=== PATIENT | female | born 1995 | race American Indian/Alaskan Native ===

== ENCOUNTER 2020-01-26 23:44 | Emergency (ER) | payer SELFPAY ==
[2020-01-27 00:31] LABS: Basophils % (Auto) 0.3 % (0.0-1.8); Hemoglobin 14.5 gm/dl (10.1-14.3); Lymphocytes # (Auto) 0.9 K/mm3 (1.2-5.4); Lymphocytes % (Auto) 11.2 % (13.4-35.0); Mean Corpuscular HGB Conc 34 % (30-34); Mean Corpuscular Volume 90 fl (79-97); Monocytes # (Auto) 0.3 K/mm3 (0.0-0.8); Monocytes % (Auto) 3.3 % (0.0-7.3); Platelet Count 272 K/mm3 (140-440); Red Blood Count 4.77 M/mm3 (3.65-5.03); Red Cell Distribution Width 14.1 % (13.2-15.2)
[2020-01-27] MEDS ORDERED: LACTATED RINGERS 1,000 ML IV ONE (00:33)
[2020-01-27] MEDS ORDERED: FAMOTIDINE 20 MG/2 ML INJ IV ONE (00:33)
[2020-01-27] MEDS ORDERED: ONDANSETRON 4 MG/2 ML INJ IV ONE ×2 (00:33→02:03)
[2020-01-27] MEDS ORDERED: LIDOCAINE VISCOUS 2% 15 ML ORAL LIQD PO ONE (00:34)
[2020-01-27] MEDS ORDERED: ALUM-MAG HYDROXIDE-SIMETHICONE 200-200-20MG/5ML ORAL LIQD 30 ML PO ONE (00:34)
[2020-01-27] MEDS ORDERED: KETOROLAC 30 MG/1 ML INJ IV ONE ×2 (00:34→03:39)
[2020-01-27 00:45] LABS: Alanine Aminotransferase 16 units/L (7-56); Albumin 4.9 g/dL (3.9-5); BUN/Creatinine Ratio 19; Blood Urea Nitrogen 15 mg/dL (7-17); Calcium 10.7 mg/dL (8.4-10.2); Hemolysis Index 12
[2020-01-27] MEDS ORDERED: MORPHINE 2 MG/1 ML INJ IV ONE (02:03)
[2020-01-27] MEDS ORDERED: SODIUM CHLORIDE 0.9% 1000 ML 1,000 ML IV ONE (02:03)
--- NOTE | 2020-01-27 02:58 | XRay Report ---
CHEST 1 VIEW INDICATION: CHEST PAIN. COMPARISON: None FINDINGS: Support devices: None. Heart: Within normal limits. Lungs/Pleura: No acute air space or interstitial disease. Additional findings: None. IMPRESSION: 1. No acute findings. Signer Name: Cyril Casper MD Signed: 01/27/2020 2:53 AM Workstation Name: [id number]
[2020-01-27 03:14] LABS: Bacteria,Urine 1+ /HPF (Negative); Bilirubin,Urine NEG (Negative); Blood,Urine NEG (Negative); Color,Urine Yellow (Yellow); Mucus,Urine FEW /HPF
--- NOTE | 2020-01-27 03:19 | Emergency Department Report ---
ED N/V/D HPI - General Chief complaint: Nausea/Vomiting/Diarrhea Stated complaint: CHEST PAIN Source: patient Mode of arrival: Ambulatory Limitations: No Limitations - History of Present Illness Initial comments: Patient is a nulliparous 24-year-old -[place] female with no past medical history presents to the ED with complaint of acute onset persistent intractable nausea and vomiting and epigastric pain that radiates to the substernal chest wall with chest pain for the last 12 hours. Patient states that she has not been able to keep anything down since the onset of the symptoms. Patient states that no one else at home is had similar symptoms. Patient also complains of headache and generalized weakness and fatigue. Patient denies diarrhea, fever, chills, cough, dizziness, syncope, vaginal bleeding, vaginal discharge, dysuria, urinary frequency and urgency, hematemesis, hematochezia, low back pain or change in vision. MD complaint: nausea, vomiting, other (chest wall pain) -: Sudden, hour(s) (12) Description of Vomiting: food contents, watery Description of Diarrhea: other (None) Associated Abdominal Pain: Yes (Epigastric pain) Location: epigastric Radiation: chest Severity: severe Pain Scale: 9 Quality: cramping, aching, sharp Consistency: constant Improves with: none Worsens with: vomiting Context: possible food poisoning Associated Symptoms: denies other symptoms, myalgias, chest pain, headaches, loss of appetite, malaise, nausea/vomiting. denies: cough, diaphoresis, fever/chills, rash, dysuria, shortness of breath, syncope, weakness - Related Data Previous Rx's Medication Instructions Recorded Last Taken Type Cyclobenzaprine [Flexeril] 10 mg PO BID PRN #20 tablet 07/29/18 Unknown Rx Menthol/Camphor [[place] 1 applic TP TID PRN #1 tube 07/29/18 Unknown Rx Ointment] Naproxen 500 mg PO BID PRN #30 tablet 07/29/18 Unknown Rx Dicyclomine [Bentyl] 20 mg PO Q6H PRN #30 tablet 01/27/20 Unknown Rx Famotidine [Pepcid] 20 mg PO Q12H #30 tablet 01/27/20 Unknown Rx Lidocaine Viscous 2% 10 ml PO Q6H PRN #120 ml 01/27/20 Unknown Rx Ondansetron [Zofran Odt] 4 mg PO Q6HR PRN #20 tab.rapdis 01/27/20 Unknown Rx Allergies Allergy/AdvReac Type Severity Reaction Status Date / Time No Known Allergies Allergy Verified 07/29/18 21:07 ED Review of Systems ROS: Stated complaint: CHEST PAIN Other details as noted in HPI Constitutional: denies: chills, fever Eyes: denies: eye pain, eye discharge, vision change ENT: denies: ear pain, throat pain Respiratory: denies: cough, shortness of breath, wheezing Cardiovascular: chest pain (Burning chest pain). denies: palpitations Endocrine: no symptoms reported Gastrointestinal: abdominal pain (Epigastric), nausea, vomiting. denies: diarrhea, hematemesis, melena, hematochezia Genitourinary: denies: urgency, dysuria, discharge Musculoskeletal: denies: back pain, joint swelling, arthralgia Skin: denies: rash, lesions Neurological: denies: headache, weakness, paresthesias Psychiatric: denies: anxiety, depression Hematological/Lymphatic: denies: easy bleeding, easy bruising ED Past Medical Hx - Past Medical History Previous Medical History?: No - Surgical History Past Surgical History?: No - Social History Smoking Status: Never Smoker Substance Use Type: None - Medications Home Medications: Home Medications Medication Instructions Recorded Confirmed Last Taken Type Cyclobenzaprine [Flexeril] 10 mg PO BID PRN #20 tablet 07/29/18 Unknown Rx Menthol/Camphor [[place] 1 applic TP TID PRN #1 tube 07/29/18 Unknown Rx Ointment] Naproxen 500 mg PO BID PRN #30 tablet 07/29/18 Unknown Rx Dicyclomine [Bentyl] 20 mg PO Q6H PRN #30 tablet 01/27/20 Unknown Rx Famotidine [Pepcid] 20 mg PO Q12H #30 tablet 01/27/20 Unknown Rx Lidocaine Viscous 2% 10 ml PO Q6H PRN #120 ml 01/27/20 Unknown Rx Ondansetron [Zofran Odt] 4 mg PO Q6HR PRN #20 tab.rapdis 01/27/20 Unknown Rx ED Physical Exam - General Limitations: No Limitations General appearance: alert, in no apparent distress - Head Head exam: Present: atraumatic, normocephalic, normal inspection - Eye Eye exam: Present: normal appearance, PERRL, EOMI Pupils: Present: normal accommodation - ENT ENT exam: Present: normal exam, normal orophraynx, mucous membranes moist, TM's normal bilaterally, normal external ear exam - Neck Neck exam: Present: normal inspection, full ROM. Absent: tenderness, lymphadenopathy - Respiratory Respiratory exam: Present: normal lung sounds bilaterally, chest wall tenderness (Palpable reproducible chest wall tenderness). Absent: respiratory distress, wheezes, rales, rhonchi, accessory muscle use, decreased breath sounds - Cardiovascular Cardiovascular Exam: Present: regular rate, normal rhythm, normal heart sounds. Absent: systolic murmur, diastolic murmur, rubs, gallop - GI/Abdominal GI/Abdominal exam: Present: soft, tenderness (Palpable mild epigastric tenderness), normal bowel sounds. Absent: guarding, rebound, hyperactive bowel sounds, hypoactive bowel sounds, organomegaly - Extremities Exam Extremities exam: Present: normal inspection, full ROM, normal capillary refill - Back Exam Back exam: Present: normal inspection, full ROM. Absent: tenderness, CVA tenderness (R), CVA tenderness (L), muscle spasm, paraspinal tenderness - Neurological Exam Neurological exam: Present: alert, oriented X3, CN II-XII intact, normal gait, reflexes normal - Psychiatric Psychiatric exam: Present: normal affect, normal mood, anxious - Skin Skin exam: Present: warm, dry, intact, normal color. Absent: rash ED Course Vital Signs 01/26/20 01/27/20 01/27/20 23:56 00:48 01:18 Temperature 98.1 F Pulse Rate 66 Respiratory 18 16 16 Rate Blood Pressure 137/79 O2 Sat by Pulse 100 Oximetry 01/27/20 02:11 Temperature Pulse Rate Respiratory 16 Rate Blood Pressure O2 Sat by Pulse Oximetry ED Medical Decision Making - Lab Data Result diagrams: 01/27/20 00:11 01/27/20 00:11 - Radiology Data Radiology results: report reviewed, image reviewed FINDINGS: Support devices: None. Heart: Within normal limits. Lungs/Pleura: No acute air space or interstitial disease. Additional findings: None. IMPRESSION: 1. No acute findings. Signer Name: Cyril Casper MD Signed: 01/27/2020 2:53 AM Workstation Name: [email or web address] Transcribed By: JW Dictated By: Cyril Casper MD Electronically Authenticated By: Cyril Casper MD Signed Date/Time: 01/27/20252 DD/ 2 TD/TT: - Medical Decision Making This is a nulliparous 24-year-old -[place] female with no past medical history presents to the ED with complaint of acute onset persistent intractable nausea and vomiting and epigastric pain that radiates to the substernal chest wall with chest pain for the last 12 hours. Patient states that she has not been able to keep anything down since the onset of the symptoms. Patient states that no one else at home is had similar symptoms. Patient also complains of headache and generalized weakness and fatigue. In the ED, patient is alert and oriented x3 and is not in distress but appears to be significantly fatigued and tired with dry mucous membranes. Patient was treated in the ED for nausea and vomiting with antiemetics, also treated with antacids, pain medication, given lactated Ringer's 1 L IV bolus solution, given additional 1 L normal saline IV bolus, and also given additional GI cocktail. Lab test results were reviewed and are all nonactionable including urinalysis except for hyperglycemia 162 mg/dL. Chest x-ray shows no acute cardiopulmonary abnormalities or pneumonitis. On reevaluation, patient's pain is well controlled medications. Patient passed oral fluid challenge in the ED. Patient was discharged home on pain medications, antiemetics, antacids and was advised to maintain a clear liquid diet for 1224 hrs., and to follow-up with her primary care physician in 3 to 5 days for reevaluation or return to the ED immediately if symptoms get worse. - Differential Diagnosis Gastroenteritis; ; Gastritis; GERD; Dehydration; UTI Critical care attestation.: If time is entered above; I have spent that time in minutes in the direct care of this critically ill patient, excluding procedure time. ED Disposition Clinical Impression: Viral gastroenteritis, Nausea and vomiting in adult, GERD without esophagitis, Acute chest wall pain Disposition: - TO HOME OR SELFCARE Is pt being admited?: No Does the pt Need Aspirin: No Condition: Stable Instructions: Chest Pain (ED), Costochondritis (ED), Acute Nausea and Vomiting (ED), Gastroenteritis (ED) Additional Instructions: All lab test results and imaging reports are unremarkable. Therefore maintain a clear liquid diet for 12 to 24 hours, take medication as needed for pain, nausea and vomiting and follow-up with your primary care physician in 3 to 5 days for reevaluation. Return to the ED immediately if symptoms get worse. Prescriptions: Dicyclomine [Bentyl] 20 mg PO Q6H PRN #30 tablet PRN Reason: Pain , Severe (7-10) Lidocaine Viscous 2% 10 ml PO Q6H PRN #120 ml PRN Reason: Pain , Severe (7-10) Famotidine [Pepcid] 20 mg PO Q12H #30 tablet Ondansetron [Zofran Odt] 4 mg PO Q6HR PRN #20 tab.rapdis PRN Reason: Nausea Referrals: [facility] [Provider Group] - 3-5 Days Time of Disposition: 03:26 Print Language: [place]
[2020-01-27] MEDS ORDERED: METOCLOPRAMIDE 10 MG/2 ML INJ IV ONE (03:39)
[2020-01-27] MEDS ORDERED: diphenhydrAMINE 50 MG/ML VIAL IV ONE (03:39)
[2020-01-28 12:59] VITALS: BP 128/67
== END 2020-01-27 04:01 | disposition home or self-care (01) ==
LOC: ED 23:44
DX: K21.9 Gastro-esophageal reflux disease without esophagitis (principal); Z79.899 Other long term (current) drug therapy
CPT/HCPCS: 36415; 71045; 80053; 81001; 83690; 84703; 85025; 96361; 96374; 96375; 96376; 99284; J1200; J1885; J2270; J2405; J2765; J7030; J7120